=== PATIENT | female | born 1980 | race African-American/Black ===

== ENCOUNTER → 2017-02-16 | Outpatient (CLI) | payer BC ==
--- NOTE | 2017-02-16 17:02 | CT ---
EXAMINATION TYPE: CT abdomen pelvis wo con DATE OF EXAM: 02/16/2017 HISTORY: Abdominal pain and blood in stool. CT DLP: 1084 mGycm. Automated Exposure Control for Dose Reduction was Utilized. TECHNIQUE: CT scan of the abdomen and pelvis is performed with oral but without IV contrast. COMPARISON: NONE FINDINGS: Within the limitations of a non-contrast study, the following observations are made. LUNG BASES: There is left basilar linear scarring and/or atelectasis. LIVER/GB: Contracted gallbladder is seen. PANCREAS: No significant abnormality is seen. SPLEEN: No significant abnormality is seen. ADRENALS: No significant abnormality is seen. KIDNEYS: No renal stones or hydronephrosis is evident bilaterally. BOWEL: Oral contrast reaches level of the proximal transverse colon. There is no suspicious small or large bowel dilatation. Normal contrast-filled appendix is seen medially from cecum. Terminal ileum i s felt within normal limits seen best coronal image 39. GENITAL ORGANS: Anteverted uterus is present. Both ovaries are identified. A few scattered pelvic phl eboliths are seen. LYMPH NODES: No greater than 1cm abdominal or pelvic lymph nodes are appreciated. OSSEOUS STRUCTURES: No significant abnormality is seen. OTHER: No bowel obstruction is seen. No significant acute finding identified. IMPRESSION: No renal stones or hydronephrosis is seen bilaterally.
== END | disposition home or self-care (01) ==
LOC: RADCTMAIN 16:35
PROVIDERS: ATTEND Family Medicine
DX: R10.813 Right lower quadrant abdominal tenderness (principal); K92.2 Gastrointestinal hemorrhage, unspecified
CPT/HCPCS: 74176

== ENCOUNTER 2017-03-08 08:43 | Day surgery (SDC) | payer BC ==
[2017-03-04 11:45] VITALS: BMI 37.2
[~2017-03-08 08:43] MED LIST: LACTATED RINGERS 1,000 ML IV SCH
[2017-03-08 09:05] VITALS: RESP 18; TEMP 98.3
[2017-03-08] MEDS ORDERED: LIDOCAINE 1% 20 ML VIAL (10MG/ML) FOR IV START INTRADERMA ONE (09:15)
[2017-03-08] MEDS ORDERED: fentaNYL (PF) 50 MCG/ML 2 ML AMP ONE (09:41)
[2017-03-08] MEDS ORDERED: PROPOFOL 10 MG/ML 20 ML VIAL IV ONE (09:41)
[2017-03-08] MEDS ORDERED: MIDAZOLAM 2 MG/2 ML VIAL ONE (09:41)
--- NOTE | 2017-03-08 09:57 | P.GSHP ---
History of Present Illness H&P Date: 03/08/17 Chief Complaint: GIbleed this is a 36-year-old female for from Dr. Mars. Patient is today for colonoscopy. She's had issues with rectal bleeding. Past Medical History Additional Past Medical History / Comment(s): ANEMIA History of Any Multi-Drug Resistant Organisms: None Reported Past Surgical History: Section, Orthopedic Surgery, Tonsillectomy Additional Past Surgical History / Comment(s): C-SECT X 3. RT TUBE REMOVED R/T ECTOPIC . ORIF RT ANKLE. COLONOSCOPY Past Anesthesia/Blood Transfusion Reactions: No Reported Reaction Smoking Status: Current every day smoker - Past Family History Mother Family Medical History: Cancer Medications and Allergies Home Medications Medication Instructions Recorded Confirmed Type Ferrous Sulfate [Iron (65 MG 325 mg PO DAILY 03/04/17 03/04/17 History Elemental)] Allergies Allergy/AdvReac Type Severity Reaction Status Date / Time latex Allergy Rash/Hives Verified 03/04/17 11:38 Surgical - Exam Vital Signs Temp Pulse Resp BP Pulse Ox 98.3 F 65 18 122/94 96 03/08/17 09:04 03/08/17 09:04 03/08/17 09:04 03/08/17 09:04 03/08/17 09:04 - General well developed, no distress - Eyes PERRL - ENT normal pinna - Neck no masses - Respiratory normal expansion - Cardiovascular Rhythm: regular - Abdomen Abdomen: soft, non tender Assessment and Plan Assessment: famGI bleed. We will perform colonoscopy.
--- NOTE | 2017-03-08 10:14 | P.OP ---
Date of Procedure: 03/08/17 Preoperative Diagnosis: GI bleed Postoperative Diagnosis: internal hemorrhoids Procedure(s) Performed: colonoscopy Anesthesia: MAC Surgeon: Blaine Quick Pathology: none sent Condition: stable Disposition: PACU Description of Procedure: patient's placed on the endoscopy table lateral position. She received IV sedation. The digital rectal exam performed which revealed internal hemorrhoids. Flexible colonoscope was then placed patient anus passed throughout the entire colon. The ileocecal valve was visualized. The cecum, ascending and transverse colon appeared normal. Scope was then brought back in the descending and; this was normal. Scope was then brought back the rectum and this appeared normal. Scope was withdrawn through the anus and there were internal hemorrhoids noted. There is no active bleeding.
[2017-03-08 10:30] VITALS: BP 130/75; PULSE 57
== END 2017-03-08 11:13 | disposition home or self-care (01) ==
LOC: ORWHC2ENDO 08:43
PROVIDERS: ATTEND Surgery
DX: K64.8 Other hemorrhoids (principal); D64.9 Anemia, unspecified; Z79.899 Other long term (current) drug therapy; Z91.040 Latex allergy status; F17.210 Nicotine dependence, cigarettes, uncomplicated
CPT/HCPCS: 81025; 45378; J2250; J3010; J2704